=== PATIENT | male | born 1990 | race Caucasian/White ===

== ENCOUNTER → 2020-02-12 | Outpatient (CLI) | payer BC ==
--- NOTE | 2020-02-12 16:36 | RADIOLOGY REPORT (SQ) ---
EXAM DESCRIPTION: U/S RETROPERITON (RENAL/AORTA) IMAGES COMPLETED DATE/TIME: 02/12/2020 4:01 pm REASON FOR STUDY: N18.4 CHRONIC KIDNEY DISEASE, STAGE 4 (SEVERE) N18.4 CHRONIC KIDNEY DISEASE, STAG E 4 (SEVERE) COMPARISON: None. TECHNIQUE: Dynamic and static grayscale images acquired of the kidneys and bladder and recorded on P ACS. Additional selected color Doppler and spectral images recorded. LIMITATIONS: None. FINDINGS: RIGHT KIDNEY: The right kidney is surgically absent. LEFT KIDNEY: The right kidney measures 10.3 cm in length. There is moderate hydronephrosis (the hi al pelvis measures 19 mm). There is no calcification or mass. BLADDER: No abnormality. OTHER FINDINGS: No other finding. IMPRESSION: Moderate left-sided hydronephrosis. The right kidney is surgically absent. TECHNICAL DOCUMENTATION: JOB ID: [id number] 2010 [employer]- All Rights Reserved Reading location - IP/workstation name: [email or web address]
== END ==
LOC: RAD 15:00
PROVIDERS: ATTEND Internal Medicine Nephrology
DX: N18.4 Chronic kidney disease, stage 4 (severe) (principal); N13.30 Unspecified hydronephrosis
CPT/HCPCS: 76770

== ENCOUNTER → 2020-03-18 | Outpatient (CLI) | payer BC ==
[~2020-03-18] MED LIST: FUROSEMIDE INJ/PF 40 MG/4 ML SDV ONE
--- NOTE | 2020-03-18 15:08 | RADIOLOGY REPORT (SQ) ---
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 RADIONUCLIDE AND DOSE: 5 millicuries Tc-99m MAG 3 The route of agent administration: Intravenous ADDITIONAL DRUGS AND DOSES: Lasix 20 mg. TECHNIQUE: Following administration of the radionuclide, flow images of the kidneys were acquired fo llowed by sequential imaging for 30 minutes. Intravenous Lasix was given at the midpoint of the study . Time activity curves were generated. LIMITATIONS: None. FINDINGS: ACTIVITY LEFT KIDNEY: 100 %. Right kidney removed of There is prompt uptake in the left kidney. There is a delayed peak 11.9 minutes. Initial T1/2 on th e left is 37.5 minutes. Normal downsloping excretion curve after CCK administration. T1/2 calculate d after the the Lasix is 129.3 minutes. 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 TECHNICAL DOCUMENTATION: JOB ID: [id number] 2010 [employer]- All Rights Reserved Reading location - IP/workstation name: [email or web address]
== END ==
LOC: RAD 10:24
PROVIDERS: ATTEND Urology
DX: Q60.0 Renal agenesis, unilateral (principal)
CPT/HCPCS: 78708; A9562; J1940

== ENCOUNTER → 2020-06-12 | Outpatient (CLI) | payer BC ==
--- NOTE | 2020-06-12 13:29 | RADIOLOGY REPORT (SQ) ---
EXAM DESCRIPTION: U/S RETROPERITON (RENAL/AORTA) IMAGES COMPLETED DATE/TIME: 06/12/2020 1:04 pm REASON FOR STUDY: (N13.30)UNSPECIFIED HYDRONEPHROSIS N13.30 UNSPECIFIED HYDRONEPHROSIS COMPARISON: 02/12/2020 TECHNIQUE: Dynamic and static grayscale images acquired of the kidneys and bladder and recorded on P ACS. Additional selected color Doppler and spectral images recorded. LIMITATIONS: None. FINDINGS: RIGHT KIDNEY: Surgically absent. LEFT KIDNEY: Normal size, 12.4 cm. Normal echogenicity. No solid or suspicious masses. Slight promi nence of the renal pelvis. No true hydronephrosis. No calcifications. BLADDER: No masses. Ureteral jet is seen. OTHER FINDINGS: No other significant finding. IMPRESSION: Slight prominence of the left renal pelvis. No true hydronephrosis. Right kidney is arambula rgically absent TECHNICAL DOCUMENTATION: JOB ID: [id number] 2010 [employer]- All Rights Reserved Reading location - IP/workstation name: [email or web address]
== END ==
LOC: RAD 12:42
PROVIDERS: ATTEND Dentist General Practice
DX: N13.30 Unspecified hydronephrosis (principal)
CPT/HCPCS: 76770